=== PATIENT | female | born 1965 | race Caucasian/White ===

== ENCOUNTER 2017-07-15 06:47 | Day surgery (SDC) | payer OTHER ==
[2017-07-11 18:08] VITALS: BMI 28.8
[2017-07-15] MEDS ORDERED: MIDAZOLAM HCL 2 MG/2 ML SINGLE DOSE VIAL ONE (10:21)
[2017-07-15] MEDS ORDERED: PROPOFOL 20 ML ONE (10:21)
--- NOTE | 2017-07-15 10:33 | HP ---
Admitting History and Physical - Admission Chief Complaint: Vaginal spotting History of Present Illness: 52 yo Para 2 with post menopausal bleeding is Pre op for D&C Hysteroscopy. History Source: Patient Limitations to Obtaining History: No Limitations - Past Medical History ...LMP Comment: 5 YEARS ...: No - Past Surgical History Additional Past Surgical History: Anterior repair - Smoking History Smoking history: Never smoked Have you smoked in the past 12 months: No - Alcohol/Substance Use Hx Alcohol Use: No History of Substance Use: reports: None - Social History History of Recent Travel: No Home Medications - Allergies Allergies/Adverse Reactions: Allergies Allergy/AdvReac Type Severity Reaction Status Date / Time No Known Allergies Allergy Verified 07/11/17 17:40 - Home Medications Home Medications: Ambulatory Orders Atorvastatin Ca [Lipitor] 40 mg PO HS 07/15/17 Hydrochlorothiazide 25 mg PO DAILY 07/15/17 Family Disease History - Family Disease History Family History: Unremarkable Review of Systems - Review of Systems Constitutional: reports: No Symptoms Eyes: reports: No Symptoms HENT: reports: No Symptoms Neck: reports: No Symptoms Cardiovascular: reports: No Symptoms Respiratory: reports: No Symptoms Gastrointestinal: reports: No Symptoms Genitourinary: reports: No Symptoms Breasts: reports: No Symptoms Reported Musculoskeletal: reports: No Symptoms Integumentary: reports: No Symptoms Neurological: reports: No Symptoms Endocrine: reports: No Symptoms Hematology/Lymphatic: reports: No Symptoms Psychiatric: reports: No Symptoms Pain Intensity: 0 Physical Examination Vital Signs: Vital Signs Temperature 98.9 F 07/11/17 17:42 Pulse Rate 75 07/11/17 17:42 Respiratory Rate 20 07/11/17 17:42 Blood Pressure 129/81 07/11/17 17:42 O2 Sat by Pulse Oximetry (%) 100 07/15/17 07:24 Constitutional: Yes: Well Nourished Eyes: Yes: Conjunctiva Clear HENT: Yes: Atraumatic Neck: Yes: Supple, Trachea Midline Cardiovascular: Yes: Regular Rate and Rhythm Respiratory: Yes: Regular Gastrointestinal: Yes: Normal Bowel Sounds Breast(s): Yes: WNL Neurological: Yes: Alert, Oriented ...Motor Strength: WNL Psychiatric: Yes: Alert, Oriented Problem List - Problems (1) Post-menopausal bleeding Code(s): N95.0 - POSTMENOPAUSAL BLEEDING Assessment/Plan Postmenopausal bleeding Pre op for D&C Hysteroscopy Consent signed Anesthesia to see patient
[2017-07-15] MEDS ORDERED: KETOROLAC TROMETHAMINE 30 MG/1 ML VIAL ONE (10:38)
[2017-07-15] MEDS ORDERED: DEXAMETHASONE SOD PHOSPHATE 4 MG/1 ML VIAL ONE (10:38)
[2017-07-15] MEDS ORDERED: ACETAMINOPHEN INJECTION 100 ML IVPB ONE (11:00)
--- NOTE | 2017-07-15 11:03 | OP ---
Operative Note - Note: Operative Date: 07/15/17 Pre-Operative Diagnosis: Postmenopausal bleeding Operation: D&C Hysteroscopy / Urethral polyp removal Findings: Urethral poly Post-Operative Diagnosis: Other (Postmenopausal bleeding / Urethral poly) Surgeon: Annette Sutherland Anesthesia: General Specimens Removed: Endometrial curettings / Urethral polyp Estimated Blood Loss (mls): 5
[2017-07-15] MEDS ORDERED: LACTATED RINGERS SOLUTION 1,000 ML IV SCH (11:15)
[2017-07-15] MEDS ORDERED: ONDANSETRON 4 MG/2 ML VIAL IVPUSH PRN (11:15)
[2017-07-15] MEDS ORDERED: oxyCODONE HCL 5 MG TABLET PO PRN (11:15)
[2017-07-15 11:56] VITALS: TEMP 97.9
[2017-07-15] MEDS ORDERED: oxyCODONE HCL 5 MG TABLET ONE (12:33)
[2017-07-15 14:13] VITALS: BP 122/74; PULSE 71
--- NOTE | 2017-07-16 12:31 | PATH ---
Surgical Pathology Report Patient Name: JAYDON MENDEZ [facility]. Rec. #: [id number] /Age/Gender: 1965 (Age: 52) / F Account: [id number] Location: [facility] SURGICAL Taken: 07/15/2017 Received: 07/15/2017 Reported: 07/16/2017 Physicians: Annette Sutherland M.D. Specimen(s) Received A: URETHRAL POLYP B: ENDOMETRIAL CURETTINGS Clinical History Postmenopausal bleeding Final Diagnosis A. URETHRAL POLYP, POLYPECTOMY: BENIGN URETHRAL CARUNCLE. NO MALIGNANT FEATURES ARE IDENTIFIED. B. ENDOMETRIUM, CURETTING: INACTIVE TO WEAKLY PROLIFERATIVE ENDOMETRIUM, ALONG WITH MUCINOUS MATERIAL AND SCANT BENIGN SQUAMOUS AND LESION. NO ENDOMETRIAL HYPERPLASIA OR CARCINOMA IDENTIFIED. Electronically Signed Angelo Rhoades M.D. Gross Description A. Received in formalin labeled "urethral polyp," are 2 pink-magaña soft tissue fragments measuring 0.7 and 1.0 cm in greatest dimension. The specimens are submitted in toto in one cassette. B. Received in formalin labeled "endometrial curettings," is a 1.6 x 1.5 x 0.3 cm aggregate of magñaa-red soft tissue fragments admixed with mucus. The formalin is filtered and the specimen is entirely submitted in one cassette. 07/15/201707/15/2017
--- NOTE | 2017-09-05 08:38 | OP ---
DATE OF OPERATION: 07/15/2017 PREOPERATIVE DIAGNOSES: bleeding and uterine polyp. POSTOPERATIVE DIAGNOSES: bleeding and uterine polyp. PROCEDURE: Dilatation and curettage, hysteroscopy, and removal of uterine polyp. SURGEON: Annette Sutherland MD ANESTHESIA: General. COMPLICATIONS: None. ESTIMATED BLOOD LOSS: 10 mL DESCRIPTION OF PROCEDURE: Patient was taken to the operating room where general anesthesia was administered. Patient was prepped and draped in proper sterile fashion. A weighted speculum was placed in the vagina. The anterior lip of the cervix was then grasped with a single-tooth tenaculum. A 5-mm hysteroscope was then gently introduced into the uterine cavity. Sharp curettage was then performed. Attention was then turned to the uterus where a polyp was found at the uterine orifice. Next the polyp was then removed, and hemostasis was obtained using a 2-0 Biosyn suture. Then, the instruments were removed. The patient was taken out of lithotomy position. She was taken to PACU in stable condition. PATHOLOGY: Uterine polyp and endometrial curettings. ANNETTE SUTHERLAND M.D. [id number]
== END 2017-07-15 13:35 | disposition home or self-care (01) ==
LOC: JASU-SURG 06:47
PROVIDERS: ATTEND Obstetrics & Gynecology
PROC: 0UB98ZX Excision of Uterus, Via Natural or Artificial Opening Endoscopic, Diagnostic (ICD-10-PCS; principal; 2017-07-15 09:00)
PROC: 0UDB8ZX Extraction of Endometrium, Via Natural or Artificial Opening Endoscopic, Diagnostic (ICD-10-PCS; 2017-07-15 09:00)
DX: N93.9 Abnormal uterine and vaginal bleeding, unspecified (principal); N84.0 Polyp of corpus uteri
CPT/HCPCS: 88305-TC; 94760